=== PATIENT | female | born 1990 | race Caucasian/White ===

== ENCOUNTER → 2020-05-27 09:21 | Outpatient (CLI) | payer OTHER, SELFPAY ==
[2020-05-27 09:42] LABS: Hematocrit 41.1 % (36-46); Hemoglobin 13.6 g/dL (12.0-16.0); Mean Corpuscular Hemoglobin 29.9 PG (26-34); Mean Corpuscular Volume 90.8 fL (80-100); Platelet Count 189 X10^3/uL (150-400); Red Blood Cell Count 4.53 X10^6/uL (4.0-5.2); Red Cell Distribution Width 13.2 % (11.6-14.8); White Blood Cell Count 5.2 X10^3/uL (4.5-11.0)
[2020-05-27 10:34] LABS: Cholesterol 87 mg/dL (140-199); Glucose 91 mg/dL (70-100); HDL Cholesterol 54 mg/dL (40-60); LDL Cholesterol Calculated 25 mg/dL (<100); Triglycerides 42 mg/dL (35-150)
[2020-05-27 12:04] LABS: TSH w/ Reflex to FT4 2.59 uIU/mL (0.47-4.68)
== END ==
PROVIDERS: PCP Registered Nurse Diabetes Educator; Referring Provider Registered Nurse Diabetes Educator; Visit Provider Registered Nurse Diabetes Educator
DX: Z00.00 Encounter for general adult medical examination without abnormal findings (principal)
CPT/HCPCS: 36415; 80061; 82947; 84443; 85027

== ENCOUNTER → 2020-11-17 17:04 | Outpatient (CLI) | payer OTHER, SELFPAY ==
[2020-11-17 18:10] LABS: Add Manual Diff / Slide Review NO; Basophils Absolute Auto 0 /uL (0-100); Basophils Percent Auto 0.3 % (0-2); Eosinophils Absolute Auto 100 /uL (0-450); Eosinophils Percent Auto 1.3 % (2-4); Hematocrit 41.3 % (36-46); Hemoglobin 13.9 g/dL (12.0-16.0); Lymphocytes Absolute Auto 2000 /uL (1100-4500); Lymphocytes Percent Auto 25.7 % (25-40); Mean Corpuscular HGB Conc 33.7 % (30-36); Mean Corpuscular Hemoglobin 29.9 PG (26-34); Mean Corpuscular Volume 88.9 fL (80-100); Monocytes Absolute Auto 600 /uL (0-900); Monocytes Percent Auto 7.8 % (3-14); Neutrophils Absolute Auto 5100 /uL (1500-7000); Neutrophils Percent Auto 64.9 % (50-75); Platelet Count 207 X10^3/uL (150-400); Red Blood Cell Count 4.64 X10^6/uL (4.0-5.2); Red Cell Distribution Width 14.5 % (11.6-14.8); White Blood Cell Count 7.9 X10^3/uL (4.5-11.0)
[2020-11-17 18:32] LABS: Appearance Urine UA CLEAR; Bilirubin Urine UA NEGATIVE (NEGATIVE); Color Urine UA YELLOW; Glucose Urine UA NEGATIVE (Negative); Ketones Urine UA NEGATIVE (NEGATIVE); Leukocyte Esterase Urine UA NEGATIVE (NEGATIVE); Nitrite Urine UA NEGATIVE (Negative); Occult Blood Urine UA TRACE-LYSED (Negative); Protein Urine UA NEGATIVE (Negative); Urobilinogen Urine UA 0.2 E.U./dL (0.2); pH Urine UA 5.5 (4.5-8.0)
[2020-11-17 20:13] LABS: HIV 1 & 2 Ab/Ag 4th Gen Combo NEGATIVE (NEGATIVE); Hep C Virus Ab w/Reflex Quant NEGATIVE s/c (NEGATIVE); Hepatitis B Surface Antigen NEGATIVE s/c (NEGATIVE)
[2020-11-18 07:09] LABS: RPR Screen Non Reactive (Non Reactive)
[2020-11-18 11:26] LABS: Varicella IgG Antibody 2368 index (Immune >165)
== END ==
PROVIDERS: Obstetrics & Gynecology; PCP Registered Nurse Diabetes Educator; Referring Provider Registered Nurse Diabetes Educator; Visit Provider Registered Nurse Diabetes Educator
DX: Z34.01 Encounter for supervision of normal first pregnancy, first trimester (principal)
CPT/HCPCS: 36415; 80055; 81003; 86787; 86803; 86850; 86900; 86901; 87086; 87389

== ENCOUNTER → 2020-11-19 17:19 | Outpatient (CLI) | payer OTHER, SELFPAY ==
[2020-11-19 21:22] LABS: Urine N gonorrhoeae NOT DETECTED
[2020-11-19 21:28] LABS: Urine Chlamydia NOT DETECTED
== END ==
PROVIDERS: PCP Registered Nurse Diabetes Educator; Visit Provider Obstetrics & Gynecology
DX: Z34.01 Encounter for supervision of normal first pregnancy, first trimester (principal); Z3A.10 10 weeks gestation of pregnancy
CPT/HCPCS: 87491; 87591

== ENCOUNTER → 2021-01-02 16:53 | Outpatient (CLI) | payer OTHER, SELFPAY ==
[2021-01-05 14:36] LABS: AFP, Serum 59.6 ng/mL (.); Estriol, Free 1.29 ng/mL (.); Inhibin A, Dimeric 99.48 pg/mL (.); Inhibin A, MoM 0.59 (.); Maternal Ethnicity Caucasian (.); Maternal Weight 135 lbs (.); Number of Fetuses No (.); OSBR Risk 1 IN 2734 (.); Results Report (.); Test Results *Screen Negative* (.); hCG, MoM 1.02 (.); hCG, Serum 39225 mIU/mL (.)
== END ==
PROVIDERS: PCP Registered Nurse Diabetes Educator; Referring Provider Obstetrics & Gynecology; Visit Provider Obstetrics & Gynecology
DX: Z34.02 Encounter for supervision of normal first pregnancy, second trimester (principal); Z3A.16 16 weeks gestation of pregnancy
CPT/HCPCS: 36415; 82105; 82677; 84702; 86336

== ENCOUNTER → 2021-01-30 10:44 | Outpatient (CLI) | payer OTHER, SELFPAY ==
--- NOTE | 2021-01-30 10:45 | DI.US.S_ITS ---
PROCEDURE: US OB >= 14 WEEKS FETUS INDICATIONS: Anatomy scan OUTSIDE/PRIOR DATING DATA: Last menstrual period (LMP): September 07, 2020. LMP-based estimated date of delivery (ONELIA): June 14, 2021. First dating scan (date and location): November 19, 2020. Estimated date of delivery (ONELIA) from first dating scan: June 11, 2021. The calculations are made using the ultrasound ONELIA of June 11, 2021. TECHNIQUE: Real-time scanning was performed of the fetus, with image documentation and biometric measurements. COMPARISON: November 19, 2020. FINDINGS: General: A single living intrauterine gestation is present. Presentation: Variable. Placenta: Placental position is anterior , without previa. Amniotic fluid index: 13.4 cm, normal range is 5-24 cm. Single deepest vertical pocket is 5.1 cm. heart rate: 149 beats per minute. Maternal cervical canal: 3.8 cm long. Normal lower limit is 2.5 cm. biometrics: Biparietal diameter: 5.4 cm Head circumference: 20.2 cm Abdominal circumference: 16.5 cm Femur length: 3.7 cm Composite gestational age from present scan: 22 weeks Estimated weight and percentile: 447 +/- 66 g; 76 percentile Anatomic survey: Neuro: Ventricles are non-dilated at less than 10 mm. Cisterna magna is normal at 3-11 mm. Cerebellum is normal in size and morphology. Nuchal skin fold: Normal at less than 6 mm between 14-21 weeks gestational age. Face: Nose and lips, facial profile are normal. Spine: No evidence for spina bifida. Heart: 4-chambered heart is present, with normal ventricular outflow tracts. Diaphragm: Diaphragm is intact. Stomach: Left-sided stomach is present. Kidneys: No hydronephrosis. Normal is less than 5 mm in 2nd trimester, less than 7 mm in 3rd trimester. Cord: 3-vessel cord has orthotopic insertion. Bladder: Normal in size. Extremities: All 4 extremities identified. IMPRESSION: Single intrauterine gestation as detailed above. We strive to produce accurate, complete, and clear reports of imaging services. To assist us in improving patient care, this report was composed using standard report templates and voice recognition software. Therefore, it may contain abnormal punctuation, insertions and/or omissions. Occasional wrong-word or sound-alike substitutions may occur. Though we review the report and make efforts to correct it, we do recommend that the report be read carefully in proper context to recognize any text inaccuracies. Dictated by: Jaskaran Ulloa M.D. on 01/30/2021 at 12:38 Approved by: Jaskaran Ulloa M.D. on 01/30/2021 at 12:43
== END ==
PROVIDERS: PCP Registered Nurse Diabetes Educator; Referring Provider Obstetrics & Gynecology; Visit Provider Obstetrics & Gynecology
DX: Z34.02 Encounter for supervision of normal first pregnancy, second trimester (principal); Z3A.22 22 weeks gestation of pregnancy
CPT/HCPCS: 76811

== ENCOUNTER → 2021-03-03 15:51 | Outpatient (CLI) | payer OTHER, SELFPAY ==
[2021-03-03 17:55] LABS: Hematocrit 36.4 % (36-46); Hemoglobin 12.7 g/dL (12.0-16.0)
[2021-03-03 18:25] LABS: GTT (PREG) 1 Hour PP 50gm Dose 106 mg/dL (76-139)
== END ==
PROVIDERS: PCP Registered Nurse Diabetes Educator; Referring Provider Obstetrics & Gynecology; Visit Provider Obstetrics & Gynecology
DX: Z34.02 Encounter for supervision of normal first pregnancy, second trimester (principal); Z3A.25 25 weeks gestation of pregnancy
CPT/HCPCS: 36415; 82950; 85014; 85018; 86850

== ENCOUNTER → 2021-05-28 14:27 | Outpatient (CLI) | payer OTHER, SELFPAY | PROVIDERS: PCP Registered Nurse Diabetes Educator; Visit Provider Obstetrics & Gynecology | DX: Z34.03 Encounter for supervision of normal first pregnancy, third trimester (principal); Z3A.37 37 weeks gestation of pregnancy | CPT/HCPCS: 87081; 87653 ==

== ENCOUNTER 2021-06-09 04:45 | Inpatient (IN) | payer OTHER, SELFPAY ==
[2021-06-09] MEDS: DINOPROSTONE VAG (CERVIDIL) 10 MG VAG (09:43)
[2021-06-09 10:16] LABS: Add Manual Diff / Slide Review NO; Basophils Absolute Auto 0 /uL (0-100); Basophils Percent Auto 0.5 % (0-2); Eosinophils Absolute Auto 100 /uL (0-450); Eosinophils Percent Auto 0.8 % (2-4); Hematocrit 38.2 % (36-46); Lymphocytes Absolute Auto 1700 /uL (1100-4500); Lymphocytes Percent Auto 18.2 % (25-40); Mean Corpuscular Hemoglobin 31.2 PG (26-34); Mean Corpuscular Volume 91.6 fL (80-100); Monocytes Absolute Auto 900 /uL (0-900); Monocytes Percent Auto 9.5 % (3-14); Neutrophils Absolute Auto 6800 /uL (1500-7000); Platelet Count 194 X10^3/uL (150-400); Red Blood Cell Count 4.17 X10^6/uL (4.0-5.2); Red Cell Distribution Width 14.2 % (11.6-14.8); White Blood Cell Count 9.6 X10^3/uL (4.5-11.0)
[2021-06-09 10:45] LABS: COVID19 -Nasal RAPID Negative (Negative)
[2021-06-09] MEDS: LACTATED RINGERS 1,000 ML 100 ML IV (10:52)
[2021-06-09 11:10] VITALS: BP 123/74
--- NOTE | 2021-06-09 18:09 | P.HPOB_ITS ---
OB HPI Date/Time Date of admission: 06/09/21 Date Patient Seen: 06/09/21 Time Patient Seen: 08:00 History of Present Condition Chief complaint: induction ONELIA Calculator Estimated Delivery Date Method Current WG Current Estimate 06/14/21 LMP (Certain) 39w 2d Other Estimates 06/11/21 Ultrasound #1 39w 5d Estimated Gestational Age (weeks): 39+2 : 1 Para: 0 care: good care, initiated at week # (10), number of visits (10) and pounds weight gain (28) Dating criteria OB: LMP confirmed by 1st trimester US Ultrasounds: normal 1st trimester US and normal mid trimester US Obstetrical complications: none Indications Indication for induction OB: other ( deployed in 6 days) Preadmission Labs Last OB Lab Results: Blood Type B Negative 06/09/21 08:45 06/09/21 Antibody Screen Positive 06/09/21 08:45 06/09/21 Hematocrit 38.2 % (36-46) 06/09/21 08:45 06/09/21 Hemoglobin 13.0 g/dL (12.0-16.0) 06/09/21 08:45 06/09/21 Hepatitis B Surface Antigen Negative s/c (NEGATIVE) 11/17/20 17:29 11/17/20 Hepatitis C Antibody Negative s/c (NEGATIVE) 11/17/20 17:29 11/17/20 Rubella Antibody 22.0 IU/mL (>15) 11/17/20 17:29 11/17/20 Varicella-Zoster IgG Antibody 2368 index (Immune >165) 11/17/20 17:29 11/17/20 Glucose 1 Hour 106 mg/dL (76-139) 03/03/21 15:55 03/03/21 -: Chlamydia screen: negative, Gonorrhea screen: negative and Urine: negative -: PAP smear: Normal Genetic Screens: Quad screen: Normal External Labs -: Urine: negative Evaluation Evaluation Baseline heart rate: 140 Variability: Moderate (11-25) monitor accelerations: Present Monitor Decelerations: Absent Contraction Frequency (minutes): 5 Uterine Contraction Intensity: Mild Status: Category l Dilation (cm): 1 Effacement (%): 75 station: -1 Position of cervix: posterior Consistency: medium [facility] Medical History (Updated 02/27/21 @ 13:00 by Tanvi Scott MD) Allergies (~1992) Chicken pox (~1994) Eczema (~1992) Encounter for removal of intrauterine contraceptive device (IUD) (~05/28/20) Headache (~1998) Wrist fracture, left (~2004) Surgical History (Updated 11/13/20 @ 10:28 by Sadaf Adler RN) Anesthesia History of tonsillectomy (~1996) [place] teeth removed (~2004) Family History (Updated 11/13/20 @ 10:33 by Sadaf Adler RN) Father Diabetes mellitus Grandfather Diabetes mellitus History of heart disease Stroke Grandmother Cancer Diabetes mellitus End stage renal disease Grandfather Diabetes mellitus Mother No problems noted. Grandmother No problems noted. Social History marital status: household members: spouse lives independently: Yes caregiver/support person: No housing: apartment pets and animals: No education level: college (BA Kinesiology) occupational status: employed ([employer]) current occupational exposures/hazards: No billie/worship: [employer] special billie needs: No seatbelt use: always do you feel safe at home: Yes Smoking Status: Never smoker second hand exposure: No alcohol intake: former (Pre-: maybe once a month.) substance use type: does not use during the past year weight has: remained stable well-balanced diet: about half the time daily servings fruits/ve-4 caffeine: No Type(s) of exercise: walking and yoga frequency: daily duration: 45-60 minutes/day Meds Home Medications and Allergies Home Medications Medication Instructions Recorded Confirmed Type cetirizine 10 mg tablet (Zyrtec) 10 mg PO DAILY PRN MDD 40 05/14/20 06/09/21 History loratadine 10 mg tablet (Claritin) 10 mg PO DAILY 11/13/20 06/04/21 History prenat.vits,vu,xda-knkv-ioedp 1 tab PO DAILY 11/13/20 06/04/21 History pantoprazole 40 mg tablet,delayed See Rx Instructions .ROUTE 02/27/21 06/04/21 Rx release .COMPLEX #90 tab Double Electric Breast Pump #1 ea 03/23/21 06/04/21 Rx Allergies Allergy/AdvReac Type Severity Reaction Status Date / Time hydrocodone [From Vicodin] AdvReac Severe vomiting Verified 06/04/21 14:51 OB Exam Narrative Exam Narrative: Generally: Patient is sitting up in bed, tolerating contractions well, no acute distress Lungs: Clear to auscultation bilaterally Cardiovascular: Regular rate and rhythm Fundal height: 39 cm Estimated weight: 7-1/2 lb Extremities: Trace edema, 1+ DTRs Objective Labs Result Diagrams: 06/09/21 08:45 Labs: Laboratory Results - last 24 hr 06/09/21 06/09/21 06/09/21 08:36 08:45 08:45 WBC 9.6 RBC 4.17 Hgb 13.0 Hct 38.2 MCV 91.6 MCH 31.2 MCHC 34.0 RDW 14.2 Plt Count 194 Neut % (Auto) 71.0 Lymph % (Auto) 18.2 L [place] % (Auto) 9.5 Eos % (Auto) 0.8 L Baso % (Auto) 0.5 Neut # (Auto) 6800 Lymph # (Auto) 1700 [place] # (Auto) 900 Eos # (Auto) 100 Baso # (Auto) 0 SARS-CoV-2 (PCR) Negative Blood Type B Negative Antibody Screen Positive Antibody Identification Anti-D Assessment and Plan Assessment and Plan Assessment and Plan narrative: Assessment: 30-year-old 1 para 0 at 39-,2/7 weeks gestation for cervical ripening Plan: Cervidil placed Recheck and replace at 9:00 p.m. if not active Time Spent with Patient Total time spent with greater than 50% in coordination of care (as documented) at patient's floor/unit and/or counseling patient:: less than 15 minutes
--- NOTE | 2021-06-09 18:12 | PM.OBPNLAB ---
Date/Time Date Patient Seen: 06/09/21 Time Patient Seen: 18:12 Pain Control Pain control: tolerating well Pelvic Exam Dilation (cm): 1 Effacement (%): 80 station: -1 Comments: Still very posterior, but soft Contractions Contractions on admission: irregular Monitor mode: External Contraction frequency (min): 3 Contraction duration (min): 1 Contraction intensity: Mild Status status: Category l Heart Rate Baseline: 140 Monitor Accelerations: Present Monitor Decelerations: Variable Monitor Variability: Moderate Assessment and Plan Assessment: other (Cervical ripening on going) Plan: continuous present management Comments: Repeat Cervidil at 9:00 p.m.
[2021-06-10] MEDS: LACTATED RINGERS 1,000 ML 100 ML IV ×3 (00:39→11:38)
[2021-06-10] MEDS: FENT 2MCG/ML BUPIV 0.125% EPI 200 MCG/100 ML PLAST..BAG 6 MCG EPIDURAL ×2 (08:10→14:07)
--- NOTE | 2021-06-10 10:03 | PM.AN.REGBLK ---
Regional Block Pre-procedure Procedure: Continuous Lumbar Epidural for L&D Attending OB provider: Tanvi cSott PMH/ROS narrative: term labor, no complications. ASA Class: II Labs: Hct 38.2 % (36-46) 06/09/21 08:45 Plt Count 194 X10^3/uL (150-400) 06/09/21 08:45 Medications: Current Medications Generic Name Dose Route Start Last Admin Trade Name Freq PRN Reason Stop Dose Admin Calcium Carbonate 1,000 mg 06/09/21 08:08 Calcium Carbonate 500 Mg Tab PO Q2HR PRN Dyspepsia Carboprost Tromethamine 250 mcg 06/09/21 08:08 Carboprost 250 Mcg/Ml Ampul IM Q90M PRN Bleeding Diphenhydramine HCl 25 mg 06/10/21 09:58 Diphenhydramine 50 Mg/Ml Vial IV Q10M PRN Pruritis Fentanyl 50 mcg 06/09/21 08:08 Fentanyl 100 Mcg/2 Ml Inj IV Q1H PRN Pain, Moderate (4-6) Oxytocin/Lactated Ringer's 30 unit in 500 mls @ 200 mls/hr 06/09/21 08:08 Oxytocin Premix IV CONT PRN Bleeding Protocol Oxytocin/Lactated Ringer's 30 unit in 500 mls @ 3 mls/hr 06/09/21 08:15 Oxytocin Premix IV TITRATE TATA Protocol 3 MILLIUNIT/MIN Tranexamic Acid 1,000 mg/ 100 mls @ 200 mls/hr 06/09/21 08:08 Sodium Chloride IV NOW PRN Bleeding Lactated Ringer's 1,000 mls @ 100 mls/hr 06/09/21 08:15 06/10/21 01:45 Lactated Ringers IV 100 mls/hr CONT TATA Administration FENT 2MCG/ML BUPIV 0.125% EPI 200 mcg in 100 mls @ 6 mls/hr 06/10/21 10:00 Fentanyl/Bupiv/Ns 2mcg/Ml - 0.125% EPIDURAL CONT TATA Methylergonovine Maleate 0.2 mg 06/09/21 08:08 Methylergonovine 0.2 Mg/Ml Vial IM NOW PRN Bleeding Methylergonovine Maleate 0.2 mg 06/09/21 08:08 Methylergonovine 0.2 Mg Tablet PO Q6HR PRN Heavy Bleeding Misoprostol 400 mcg 06/09/21 08:08 Misoprostol 200 Mcg Tablet SL NOW PRN Bleeding Misoprostol 1,000 mcg 06/09/21 08:08 Misoprostol 200 Mcg Tablet CO NOW PRN Bleeding Misoprostol 800 mcg 06/09/21 08:08 Misoprostol 200 Mcg Tablet CO NOW PRN Bleeding Nalbuphine HCl 2.5 mg 06/10/21 09:58 Nalbuphine 20 Mg/Ml Ampul IV Q10M PRN Pruritis Naloxone HCl 0.2 mg 06/09/21 08:08 Naloxone 0.4 Mg/Ml Vial IV Q2MIN PRN Opiate Reversal Ondansetron HCl 4 mg 06/09/21 08:08 Ondansetron 4 Mg/2 Ml Inj IV Q4HR PRN Nausea And Vomiting Oxytocin 10 unit 06/09/21 08:08 Oxytocin 10 Unit/Ml Vial IM NOW PRN Bleeding Allergies: Allergies Allergy/AdvReac Type Severity Reaction Status Date / Time hydrocodone [From Vicodin] AdvReac Severe vomiting Verified 06/04/21 14:51 Procedure Insertion date: 06/10/21 Insertion time: 07:40 Prep/Local: betadine x3 and 1% lidocaine Interspace: L3-4 Patient position: sitting Needle: 18 gauge [employer] (CSE: 27g [place] through [place], clear CSF, 1mL 0.25% bupiv MPF) Loss of resistance with: saline SOFIE at (cm): 4 Catheter placed at SKIN (cm): 9 Catheter in SPACE (cm): 5 Insertion: No CSF, No Blood, No Paresthesia with insertion, No Paresthesia with injection and No Test dose reaction Initial Medications TEST DOSE time: 07:41 TEST DOSE: 1.5% lidocaine with epinephrine 1:200k (mL): 3 BOLUS DOSE time: 08:13 BOLUS DOSE (mL): 5 BOLUS DOSE med: other (infusate) Infusion INFUSION: 0.125% bupivacaine and with fentanyl 2 mcg/mL Subsequent interventions: 14:00 6mL 2-chloroprocaine 15:50 5mL 0.25% bupiv 18:55 6mL 2-chloroprocaine for forceps delivery Post-procedure Anesthesia time START: 07:32 Anesthesia time END: 19:22 Post-procedure Anesthesia Assessment: Yes CV function: HR/BP stable, Yes Resp function: RR/sat/airway adequate, Yes Mental status appropriate and No Anesthesia complications
--- NOTE | 2021-06-10 11:10 | PM.OBPNLAB ---
Date/Time Date Patient Seen: 06/10/21 Time Patient Seen: 11:10 Pain Control Pain control: epidural Pelvic Exam Dilation (cm): 4 Effacement (%): 80 station: 0 Amniotic membrane status: Intact Contractions Contractions on admission: irregular Monitor mode: External Contraction frequency (min): 5 Contraction duration (min): 1 Contraction pattern: Irregular Contraction intensity: Moderate Status status: Category l Heart Rate Baseline: 130 Monitor Accelerations: Present Monitor Decelerations: Absent Monitor Variability: Moderate Comments: Blood pressure 122/63, pulse 75, temperature 35.9? Assessment and Plan Assessment: induction ongoing Plan: begin patient augmentation
[2021-06-10] MEDS: OXYTOCIN PREMIX 30 UNIT/500 ML PLAST..BAG IV (11:39)
[2021-06-10] MEDS: CALCIUM CARBONATE 500 MG TAB 1000 MG PO (14:06)
--- NOTE | 2021-06-10 19:49 | PM.OBPRVD ---
Labor & Delivery Delivery date: 06/10/21 Intrapartal Events: Prolonged 2nd Stage > 2.5 hours and Abnormal Presentation Cervical ripening method: per Cervidil protocol Induction method: per pitocin protocol Delivery monitor: external FHT and external uterine Route of delivery: forceps Indication for instrumentation: maternal exhaustion Episiotomy description: None L&D Laceration Description: Vaginal - 2nd Degree Delivery repair: vicryl and chromic Estimated blood loss (mL): 250 Anesthesia Type: Epidural Complications: None Narrative: Patient complete and pushed for 2.5+ hours. Due to maternal exhaustion a vacuum was placed with 1 contraction with minimal movement of the head past +2 station. Laufe forceps were applied without difficulty. With 1 contraction the vertex was brought to the perineum. The forceps were removed. With 2 more contractions the vertex delivered over an intact perineum in the FAUSTINO presentation at 1922.The remainder of the body delivered without difficulty and was placed on mom's abdomen. The cord was double clamped and cut after it stopped pulsing. Pitocin was given in the IV fluids. bloods were obtained. The placenta delivered intact with a three-vessel cord at 1929. The fundus was massaged to firm. A second-degree vaginal laceration was repaired with 2 0 Vicryl and 2 0 chromic in the usual fashion. Hemostasis was achieved. Estimated blood loss 250 cc. Apgars 9 at 1 minute and 9 at 5 minutes. Epidural analgesia. Mom and stable to recovery. Baby 1: Infant gender: Male Presentation: vertex Position: Right Occiput Anterior Placenta delivery description: Spontaneous Cord Vessel Description: 3 Vessels score (1 min): 9 score (5 min): 9 weight: 8 lb 8 oz Plan for aftercare: Routine care
[2021-06-10] MEDS: DERMOPLAST SPRAY 20% 60 ML 1 SPRAY TOP (23:38)
[2021-06-10] MEDS: IBUPROFEN 600 MG TABLET PO (23:38)
[2021-06-10] MEDS: ACETAMINOPHEN 325 MG TABLET 650 MG PO (23:38)
[2021-06-11 05:01] LABS: Hematocrit 33.5 % (36-46); Hemoglobin 11.3 g/dL (12.0-16.0)
[2021-06-11] MEDS: ACETAMINOPHEN 325 MG TABLET 650 MG PO ×2 (05:33→12:12)
[2021-06-11] MEDS: IBUPROFEN 600 MG TABLET PO ×2 (05:33→12:13)
[2021-06-11] MEDS: LANOLIN OINT 7 GM 1 APPLIC TOP (12:12)
[2021-06-11] MEDS: DOCUSATE 100 MG CAPSULE PO (12:12)
[2021-06-11 15:12] VITALS: BP 110/68; PULSE 82; RESP 18; TEMP 36.2
--- NOTE | 2021-06-24 04:42 | P.DS_ITS ---
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 She received Cervidil on June 09, 2021. That evening she received a second Cervidil do the continued unfavorable cervix. On the morning of June 10, 2021, she was 4 cm dilated and 80% effaced and at 0 station. She received an epidural for pain management. Pitocin augmentation was started. She progressed to complete dilation and after 2-1/2 hours of pushing and maternal exhaustion a forceps assisted vaginal delivery was performed without complication. She had a second-degree vaginal laceration which was repaired. Her course was unremarkable and she was discharged home on June 11, 2021. Peripartum Data Infant Delivery Method: Assisted Delivery (Outlet forceps) Laceration Description: Vaginal - 2nd Degree Episiotomy description: None Procedures: Cervidil cervical ripening Pitocin augmentation of labor Epidural analgesia Outlet forceps assisted delivery Second-degree vaginal laceration and repair complications: none 1: Gender: Male Disposition of : home Status at Discharge Cognitive/behavioral status at discharge: oriented Functional status at discharge: independent ambulation Overall status at discharge: patient is progressing back to baseline Time Spent with Patient Time attestation: Total time spent providing and/or coordinating discharge services: Time spent: Less than 30 minutes Objective Labs Result Diagrams: 06/11/21 04:45 Exam Narrative Exam Narrative: Generally: Patient lying in bed, holding infant, no acute distress Fundus: Firm at U -1 Extremities: Trace edema, negative Homans Discharge Plan Discharge Plan Patient Disposition: Home Provider Discharge Comment: Call with fever, chills, or bleeding vaginally more than a pad in an hour Ibuprofen 600 mg every 6 hours as needed Tylenol 650 mg every 6 hours as needed Stool softener as needed Discharge orders & Medications Prescriptions: Continued pantoprazole 40 mg tablet,delayed release (DR/EC) See Rx Instructions .ROUTE .COMPLEX Qty: 90 1RF Dose Instruction: TAKE 1 TABLET BY MOUTH DAILY Rx Instructions: TAKE 1 TABLET BY MOUTH DAILY (DME) Double Electric Breast Pump See Rx Instructions .Route .MEDSUPPLY Qty: 1 0RF Rx Instructions: Breast pump with supplies cetirizine [Zyrtec] 10 mg tablet 10 mg PO DAILY MDD 40 PRN (Reason: not sure) 0RF prenat.vits,vu,[id number] Tablet 1 tab PO DAILY 0RF Discontinued loratadine [Claritin] 10 mg tablet 10 mg PO DAILY 0RF Follow up/Referrals: Tanvi Scott MD [Physician] - 1 Month (Pt has follow up appointment with Dr. Scott on June @ 7129 check in time for 0563 appt.) Diet/Activity/Treatments Diet: Diet as Tolerated Activity: Nothing in the vagina Skin/Wound/Dressing Care Report to your healthcare provider any signs of infection, such as:: chills, fever, increased pain and unusual drainage Visit Report/Discharge Packet Instructions: DI for Labor and Delivery, Vaginal Stand Alone Forms: Discharge: Care Discharge Data Primary Care Provider: Gabe Villaseñor
== END 2021-06-11 17:55 | disposition home or self-care (01) | DRG 807 ==
PROVIDERS: Admitting Provider Obstetrics & Gynecology; PCP Registered Nurse Diabetes Educator; Referring Provider Obstetrics & Gynecology; Visit Provider Obstetrics & Gynecology
DX: O63.1 Prolonged second stage (of labor) (principal); Z37.0 Single live birth; O75.81 Maternal exhaustion complicating labor and delivery; O70.1 Second degree perineal laceration during delivery; Z3A.39 39 weeks gestation of pregnancy; Z20.822 Contact with and (suspected) exposure to COVID-19
CPT/HCPCS: 01967; 36415; 59050; 59200; 59400; 76815; 85014; 85018; 85025; 86850; 86870; 86900; 86901; 87635; C9803; G0379; J2590